=== PATIENT | female | born 1965 | race Two or more races ===

== ENCOUNTER 2025-06-25 13:35 | Outpatient (AMB) | payer MEDICAID, SELFPAY ==
--- NOTE | 2025-06-25 13:47 | GSCOFFNT_ITS ---
Vital Signs - [facility] 06/25/25 13:49 Height 1.65 m Height Method Measured Weight 87.175 kg Weight Measurement Method Standing Scale BMI 31.9 BP 105/70 Blood Pressure Source Automatic Cuff Blood Pressure Location Left Upper Arm Position Sitting Respiration 18 Pulse 80 Pulse Source Monitor Temp 97.5 F Temp Source Temporal Artery Scan Pulse Oximetry (%) 97 Oxygen Delivery Method Room Air Med/Allergies Allergies & Medications Allergies No Known Allergies Allergy (Unknown, Uncoded 06/25/25 13:50) Medication Reconciliation Unobtainable 06/25/25 [History Confirmed 06/25/25] MA Intake Visit Data Collection New Patient or Established: New Patient (never been to [facility]) Seen by Clinical Staff ONLY (RN/MA): No Pain Present Currently: No Pain Scale Used: Munoz-Byers/Numerical Press Maintainer Required: Yes PCP or OBGYN visit in last 3 months: Yes Hx Now: No Do You Feel Safe at Home: Yes Authorities Contacted: N/A Smoking Status Smoking Status: Never smoker Immunization / Flu Flu Vaccine in the Last 12 Months: No Flu Vaccine Exclusion Criteria: Refused by Patient Past Medical History Social History SMOKING STATUS: Smoking status: Never smoker HPI HPI Narrative HISTORY OF PRESENT ILLNESS I, Tigist Hernández, have obtained verbal consent from the patient, to be recorded during this encounter which may include, but not limited to, medical history, examination, treatment plans, and relevant health information.? Patient was informed that recording will be read and reviewed by myself before inclusion in the medical chart. The patient presents for a colonoscopy. She is accompanied by an drainlayer. 59F referred for first colonoscopy. She denies any changes in bowel habits, blood in stool, anorexia and unintentional weight loss. Also denies any pencil thin stools. PMH: None PSHx: Tubal ligation Meds: None Allergies: NKDA Family hx: Aunt with unknown type of CA treated with hysterectomy and ?colectomy ROS Review of Systems Systems Reviewed: All systems reviewed, normal except as documented Objective/Exam General General Appearance: alert, cooperative and well groomed Resp Respiratory exam: Absent respiratory distress Assessment & Plan Diagnosis / Problem List (1) Encounter for screening colonoscopy for [id number] patient: Status: Acute Assessment & Plan: 59F presenting for first screening colonoscopy. A comprehensive discussion was held regarding the colonoscopy procedure, including its benefits, risks, and potential complications. The primary benefit is the identification and removal of polyps to prevent colon cancer. Risks include bleeding and the rare possibility of colon perforation, which would require emergency surgery. The procedure will take about 30 minutes, followed by a short recovery period. She was advised to abstain from solid food intake the day prior to the procedure, but she may consume liquids throughout the day. A medication will be prescribed to facilitate bowel cleansing, which may induce diarrhea. The procedure will be performed either at the hospital or the ambulatory surgery center, and she will be informed of the exact location closer to the date. Sedation will be administered to ensure her comfort during the procedure. Post-procedure, she may experience some bleeding if polyps are removed, which typically resolves spontaneously. She was also informed about the rare risk of colon perforation, which would necessitate emergency surgery. The procedure is expected to last approximately 30 minutes, followed by a brief recovery period. She will need to arrange for someone to accompany her home post-procedure. A follow-up appointment will be scheduled a few weeks post-procedure to discuss the findings and determine the timing of her next colonoscopy. The necessary instructions were provided. All questions were answered and pt is agreeable to proceeding Office Procedures GNS Level of Care Nursing/Assessment Patient Status: Initial/New Patient Nursing Assessment/Reassesment: Medication Reconciliation, Update PMH in EMR and Vital Signs Coordination of Care: Complex Care and Chronic Disease 1-5, Education Complex Pt/Fam, Consent,records obtained, informed consent, Lab and Imaging orders, Results/Orders obtained and Staff clarify orders Special Needs: Language special needs New Patient Charge New Patient Point Assignment: 1109 New Patient Point Charge: PEARL GLUE OPERATOR Level 3 ([id number]) Patient Portal Questionaires Social History Tobacco History Smoking Status: Never smoker Domestic Abuse History Do You Feel Safe at Home: Yes Review of Systems Report any current symptoms Only answer those that you have currently: Past Medical History Past Medical History Have you ever been diagnosed with any of the following:
[2025-06-25 13:49] VITALS: BP 105/70; PULSE 80; RESP 18; TEMP 36.4; O2SAT 97; BMI 31.9
== END 2025-06-25 14:24 | disposition home or self-care (01) ==
LOC: HODSRG 13:35
PROVIDERS: PCP Family Medicine; Referring Provider Family Medicine; Supervising Provider Surgery; Visit Provider Surgery
DX: Z12.11 Encounter for screening for malignant neoplasm of colon (principal)
CPT/HCPCS: 99203; G0463